=== PATIENT | male | born 1955 | race African-American/Black ===

== ENCOUNTER 2017-04-14 06:02 | Day surgery (SDC) | payer BC ==
[~2017-04-14] VITALS: Ht 174 cm; Wt 106.6 kg
--- NOTE | ~2017-04-14 | EGD ---
EGD REPORT [facility] [address] [address] NAME: CADEN KLEIN : [birth year] STATUS : REG [facility] PAT#: [id number] AGE: 62 ADM/REG DATE : 04/14/17 MR#: [id number] REPORT SERV DATE: 04/14/17 DICTATED BY: JOHN MCCLELLAN DATE: 04/14/17 REPORT STATUS : Draft [facility]ANSCRIBED BY: [facility] DATE: 04/14/17 [facility] Patient Name: Caden Klein Date of : 1955 Attending MD: JOHN MCCLELLAN MD Procedure Date No Time: 04/14/2017 Procedure: Colonoscopy Indications: Screening for colorectal malignant neoplasm Referring MD: JOHANA MARIE MD Medicines: Monitored Anesthesia Care Complications: No immediate complications. Procedure: Pre-Anesthesia Assessment: - ASA Grade Assessment: II - A patient with mild systemic disease. After I obtained informed consent, the scope was passed under direct vision. Throughout the procedure, the patient's blood pressure, pulse, and oxygen saturations were monitored continuously. The CF [id number] was introduced through the anus and advanced to the terminal ileum, with identification of the appendiceal orifice and IC valve. The colonoscopy was performed without difficulty. The patient tolerated the procedure well. The quality of the bowel preparation was good. Findings: The digital rectal exam was normal. Pertinent negatives include no palpable rectal lesions. Three sessile polyps were found in the transverse colon. The polyps were 2 to 3 mm in size. These polyps were removed with a cold biopsy forceps. Resection and retrieval were complete. Three sessile polyps were found in the sigmoid colon. The polyps were 3 to 4 mm in size. These polyps were removed with a cold biopsy forceps. Resection and retrieval were complete. Six sessile polyps were found in the rectum. The polyps were 2 to 3 mm in size. These polyps were removed with a cold biopsy forceps. Resection and retrieval were complete. Multiple diverticula were found in the sigmoid colon. Hemorrhoids were found during retroflexion and were mild. The terminal ileum appeared normal. Impression: - Three 2 to 3 mm polyps in the transverse colon. Resected and retrieved. - Three 3 to 4 mm polyps in the sigmoid colon. Resected and retrieved. - Six 2 to 3 mm polyps in the rectum. Resected and EGD REPORT [place] [id number] [facility] [place]. [address] NAME: CADEN KLEIN : [birth year] STATUS : REG [facility]#: [id number] AGE: 62 ADM/REG DATE : 04/14/17 MR#: [id number] REPORT SERV DATE: 04/14/17 DICTATED BY: JOHN MCCLELLAN DATE: 04/14/17 REPORT STATUS : Draft TRANSCRIBED BY: [facility] DATE: 04/14/17 retrieved. - Diverticulosis in the sigmoid colon. - Hemorrhoids. Recommendation: - Patient has a contact number available for emergencies. The signs and symptoms of potential delayed complications were discussed with the patient. Return to normal activities tomorrow. Written discharge instructions were provided to the patient. - Regular diet. - Continue present medications. - Await pathology results. - Repeat colonoscopy for surveillance based on pathology results. - Return to GI clinic PRN. Procedure Code(s): --- Professional --- 81101, Colonoscopy, flexible, proximal to splenic flexure; with biopsy, single or multiple Diagnosis Code(s): --- Professional --- K62.1, Rectal polyp D12.5, Benign neoplasm of sigmoid colon D12.3, Benign neoplasm of transverse colon K64.9, Unspecified hemorrhoids K57.30, Diverticulosis of large intestine without perforation or abscess without bleeding Z12.11, Encounter for screening for malignant neoplasm of colon CPT copyright 2013 [employer] [place] [employer]. All rights reserved. The codes documented in this report are preliminary and upon clerk specialist review may be revised to meet current compliance requirements. JOHN MCCLELLAN MD 04/14/2017 8:11 AM This report has been signed electronically. Number of Addenda: 0 Note Initiated On: 04/14/2017 7:41 AM Scope Withdrawal Time 0 hours 13 minutes 32 seconds [id number] [id number]
[~2017-04-14 06:02] MED LIST: ASA5GR PO; C5 PO; FLONASE NAS; PCET PO
== END 2017-04-14 23:59 | disposition home or self-care (01) ==
LOC: DMU 06:02
PROVIDERS: Internal Medicine Gastroenterology
PROC: 0DBL8ZX Excision of Transverse Colon, Via Natural or Artificial Opening Endoscopic, Diagnostic (ICD-10-PCS; 2017-04-14)
PROC: 0DBP8ZX Excision of Rectum, Via Natural or Artificial Opening Endoscopic, Diagnostic (ICD-10-PCS; 2017-04-14)
PROC: 0DBN8ZX Excision of Sigmoid Colon, Via Natural or Artificial Opening Endoscopic, Diagnostic (ICD-10-PCS; principal; 2017-04-14 07:30)
DX: Z12.11 Encounter for screening for malignant neoplasm of colon (principal); K63.5 Polyp of colon; K62.1 Rectal polyp; K57.30 Diverticulosis of large intestine without perforation or abscess without bleeding; K64.9 Unspecified hemorrhoids; Z88.0 Allergy status to penicillin; Z79.82 Long term (current) use of aspirin; Z79.51 Long term (current) use of inhaled steroids; Z77.22 Contact with and (suspected) exposure to environmental tobacco smoke (acute) (chronic); Z98.890 Other specified postprocedural states
CPT/HCPCS: 88305